=== PATIENT | male | born 1985 | race Caucasian/White ===

== ENCOUNTER 2017-02-14 14:45 | Emergency (ER) | payer OTHER, BC ==
[~2017-02-14] VITALS: Ht 188 cm; Wt 77.3 kg
[2017-02-14] MEDS ORDERED: CLAR1TAB2 PO (14:50)
[2017-02-14] MEDS ORDERED: LIDOCAINE W/EPINEPHRINE 1% 20ML VIAL SC ONE (16:15)
[2017-02-14] MEDS ORDERED: ADACEL/BOOSTRIX VACCINE (DIPHTH/PERTUSS/ACELL/TETANUS)0.5ML SYR (90715) IM ONE (16:15)
[2017-02-14] MEDS ORDERED: ONDANSETRON 4 MG ORAL DISINTEGRATING TAB (S0181) PO ONE (16:15)
[2017-02-14] MEDS ORDERED: MORPHINE 4 MG/ML 1ML SYRINGE IM ONE (16:15)
--- NOTE | 2017-02-14 16:38 | REP ---
Clinical: Laceration. Technique: AP and lateral views of the left forearm. Findings: Significant laceration noted to the soft tissues at the mid diaphyseal level. No obvious osseous involvement. No acute fracture or dislocation. No foreign body. Impression: Significant laceration of the soft tissues midshaft. Signed by Moreno Gautam MD 02/14/2017 04:28 P
[2017-02-14] MEDS ORDERED: LIDOCAINE 2% MDV 20 ML VIAL SC ONE (19:00)
[2017-02-14] MEDS ORDERED: ONDANSETRON 4MG/2ML VIAL (J2405) IV ONE (19:00)
[2017-02-14] MEDS ORDERED: MORPHINE 4 MG/ML 1ML SYRINGE IV ONE (19:00)
[2017-02-14] MEDS ORDERED: NORCOTAB PO (19:39)
[2017-02-14] MEDS ORDERED: KEFL500C17 PO (19:39)
[2017-02-14] MEDS ORDERED: NORCO 5/325MG TABLET (BULK FOR ED) PO ONE (19:45)
[2017-02-14 20:38] VITALS: BP 125/70
== END 2017-02-14 20:40 | disposition home or self-care (01) ==
LOC: M ED 14:45
DX: S51.812A Laceration without foreign body of left forearm, initial encounter (principal); S56.922A Laceration of unspecified muscles, fascia and tendons at forearm level, left arm, initial encounter; W31.9XXA Contact with unspecified machinery, initial encounter; Y92.59 Other trade areas as the place of occurrence of the external cause; Y93.89 Activity, other specified; Y99.8 Other external cause status
CPT/HCPCS: 12032; 73090; 90471; 90715; 96365; 96372; 96374; 96375; 99283; J0690; J2405

== ENCOUNTER → 2017-08-29 | Outpatient (REF) | payer BC | LOC: M SFHCLERA 10:11 | DX: J02.9 Acute pharyngitis, unspecified (principal) ==

== ENCOUNTER → 2020-07-14 | Outpatient (CLI) | payer BC ==
[~2020-07-14] MED LIST: CLAR1TAB2 PO; HYDR-3715 PO; KEFL500C17 PO
--- NOTE | 2020-07-14 07:30 | REP ---
INDICATION: HTN COMPARISON: None. TECHNIQUE: PA and lateral. FINDINGS: The mediastinum and cardiac silhouette are normal. The lung guzman are clear and without acute consolidation, effusion, or pneumothorax. The skeletal structures are intact and normal. IMPRESSION: No acute cardiopulmonary process. <Electronically signed by Moreno Gautam > 07/14/20 [id number]
[2020-07-14 07:40] LABS: HEMATOCRIT 44.7 % (42.0-52.0); HEMOGLOBIN 14.5 g/dl (13.5-17.5); MEAN CORPUSCULAR HEMOGLOBIN 29.8 pg (27.0-33.0); MEAN CORPUSCULAR HGB CONC 32.4 g/dl (32.0-36.5); MEAN CORPUSCULAR VOLUME 91.8 fl (80.0-96.0); PLATELET COUNT, AUTOMATED 156 10^3/uL (150-450); RED BLOOD COUNT 4.87 10^6/uL (4.30-6.10); WHITE BLOOD COUNT 4.8 10^3/uL (4.0-10.0)
[2020-07-14 08:22] LABS: ALBUMIN 4.2 GM/DL (3.2-5.2); ALT/SGPT 20 U/L (12-78); BILIRUBIN,TOTAL 0.7 MG/DL (0.2-1.0); BLOOD UREA NITROGEN 16 MG/DL (7-18); CARBON DIOXIDE LEVEL 31 MEQ/L (21-32); CHLORIDE LEVEL 104 MEQ/L (98-107); CHOLESTEROL LEVEL 160 MG/DL (<200); CHOLESTEROL RISK RATIO 2.711 (<5); CREATININE FOR GFR 1.07 MG/DL (0.70-1.30); GLOMERULAR FILTRATION RATE > 60.0 (>60); GLUCOSE, FASTING 81 MG/DL (70-100); HDL CHOLESTEROL 59 MG/DL (>40); LDL CHOLESTEROL 88 MG/DL (<100); NON-HDL-C 101 MG/DL; SODIUM LEVEL 142 MEQ/L (136-145); TOTAL PROTEIN 7.6 GM/DL (6.4-8.2); TRIGLYCERIDES LEVEL 66 MG/DL (<150)
--- NOTE | 2020-07-14 08:46 | ECGEPIP ---
[facility] Test Date: 2020-07-14 Pat Name: ETRESA ROMAN Department: Room: - Gender: Male [employer]: rf : 1985 Requested By: Brando Mcgee Order Number: [id number] Reading MD: Shade Smith Measurements Intervals [place] Rate: 73 P: 83 RI: 146 QRS: 67 QRSD: 92 T: 64 QT: 386 QTc: 425 Interpretive Statements Normal sinus rhythm with sinus arrhythmia Right atrial enlargement Baseline artifact Comparison tracing not on file Electronically Signed on 07-14-2020 8:46:49 EST by Shade Smith
[2020-07-14 09:36] LABS: HEMOGLOBIN A1c 4.7 %
[2020-07-14 09:57] LABS: TOTAL 25(OH) VITAMIN D 24.6 NG/ML (30.0-100.0)
== END ==
LOC: M LAB 06:06
PROVIDERS: ATTEND Family Medicine
DX: E03.9 Hypothyroidism, unspecified (principal); R53.83 Other fatigue; I10 Essential (primary) hypertension

== ENCOUNTER → 2022-07-07 | Outpatient (REF) | payer BC | LOC: M LAB REF 19:08 | PROVIDERS: ATTEND Physician Assistant Medical | DX: R07.0 Pain in throat (principal) ==

== ENCOUNTER → 2022-09-25 | Outpatient (CLI) | payer BC ==
[~2022-09-25] MED LIST changes: +E-Z-GAS II EFFERVESCENT PACKET (SODIUM BICARB./CITRIC ACID/SIMETHICONE) As Ordered ONE; +E-Z-HD 98% w/w 340GM SUSP BTL As Ordered ONE; +E-Z-PAQUE 96% w/w SUSP 176GM BTL As Ordered ONE
== END ==
LOC: M RAD 09:35
PROVIDERS: ATTEND Family Medicine
DX: R10.13 Epigastric pain (principal)

== ENCOUNTER → 2022-09-27 | Outpatient (CLI) | payer BC ==
[~2022-09-27] MED LIST changes: -E-Z-GAS II EFFERVESCENT PACKET (SODIUM BICARB./CITRIC ACID/SIMETHICONE) As Ordered ONE; -E-Z-HD 98% w/w 340GM SUSP BTL As Ordered ONE; -E-Z-PAQUE 96% w/w SUSP 176GM BTL As Ordered ONE
[2022-09-27 09:44] LABS: HEMATOCRIT 44.9 % (42.0-52.0); HEMOGLOBIN 14.7 g/dl (13.5-17.5); MEAN CORPUSCULAR HEMOGLOBIN 30.3 pg (27.0-33.0); MEAN CORPUSCULAR HGB CONC 32.7 g/dl (32.0-36.5); MEAN CORPUSCULAR VOLUME 92.6 fl (80.0-96.0); PLATELET COUNT, AUTOMATED 169 10^3/uL (150-450); RED BLOOD COUNT 4.85 10^6/uL (4.30-6.10); WHITE BLOOD COUNT 5.4 10^3/uL (4.0-10.0)
[2022-09-27 09:58] LABS: HEMOGLOBIN A1c 4.9 % (4.0-6.0)
[2022-09-27 10:19] LABS: ALKALINE PHOSPHATASE 46 U/L (46-116); ALT/SGPT 24 U/L (7.0-40); AST/SGOT 22 U/L (<34); BILIRUBIN,TOTAL 0.5 MG/DL (0.3-1.2); BLOOD UREA NITROGEN 17 MG/DL (9-23); CALCIUM LEVEL 9.1 MG/DL (8.5-10.1); CARBON DIOXIDE LEVEL 29 MMOL/L (20-31); CHLORIDE LEVEL 105 MMOL/L (98-107); CHOLESTEROL LEVEL 162 MG/DL (<200); CHOLESTEROL RISK RATIO 3.02 (<5); CREATININE FOR GFR 1.03 MG/DL (0.70-1.30); GLOMERULAR FILTRATION RATE > 60.0 (>60); GLUCOSE, FASTING 82 MG/DL (60-100); HDL CHOLESTEROL 53.5 MG/DL (>40); LDL CHOLESTEROL 89.1 MG/DL (<100); NON-HDL-C 108.5 MG/DL; POTASSIUM SERUM 4.3 MMOL/L (3.5-5.1); SODIUM LEVEL 142 MMOL/L (136-145); TOTAL PROTEIN 7.1 G/DL (5.7-8.2); TRIGLYCERIDES LEVEL 97 MG/DL (<150)
[2022-09-27 10:33] LABS: TOTAL 25(OH) VITAMIN D 90.2 NG/ML (20.0-100.0)
== END ==
LOC: M RAD 07:50
PROVIDERS: ATTEND Family Medicine
DX: I10 Essential (primary) hypertension (principal); R53.83 Other fatigue; E03.9 Hypothyroidism, unspecified

== ENCOUNTER → 2022-11-29 | Outpatient (CLI) | payer BC ==
[~2022-11-29] MED LIST changes: +AMPH1TAB2 PO
== END ==
LOC: M RAD 15:11
PROVIDERS: ATTEND Family Medicine
DX: R10.814 Left lower quadrant abdominal tenderness (principal)

== ENCOUNTER 2022-12-05 08:57 | Day surgery (SDC) | payer BC ==
[~2022-12-05] VITALS: Ht 182.9 cm; Wt 77.3 kg
[~2022-12-05 08:57] MED LIST changes: +NS 1,000 ML IV ONE
[2022-12-05] MEDS ORDERED: propofoL 200 MG/20 ML VIAL As Ordered ONE ×3 (10:39→10:47)
[2022-12-05 11:25] VITALS: BP 114/71; O2SAT 98
== END 2022-12-05 11:40 | disposition home or self-care (01) ==
LOC: M OPP 08:57
PROVIDERS: ATTEND Internal Medicine Gastroenterology
DX: D12.5 Benign neoplasm of sigmoid colon (principal); K64.8 Other hemorrhoids; K92.1 Melena; Z87.891 Personal history of nicotine dependence; Z79.899 Other long term (current) drug therapy

== ENCOUNTER → 2024-10-04 | Outpatient (CLI) | payer BC ==
[~2024-10-04] MED LIST changes: -NS 1,000 ML IV ONE
[2024-10-04 11:10] LABS: BASO % 0.7 % (0.0-1.0); EOS # 0.3 10^3/uL (0.0-0.5); EOS % 4.6 % (0.0-3.0); HEMATOCRIT 42.8 % (42.0-52.0); LYMPH # 1.6 10^3/uL (1.5-5.0); LYMPH % 28.4 % (24.0-44.0); MEAN CORPUSCULAR HEMOGLOBIN 30.4 pg (27.0-33.0); MEAN CORPUSCULAR HGB CONC 32.7 g/dl (32.0-36.5); MEAN CORPUSCULAR VOLUME 92.8 fl (80.0-96.0); MONO # 0.6 10^3/uL (0.0-0.8); MONO % 10.6 % (2.0-8.0); NEUTROPHILS % 55.5 % (36.0-66.0); PLATELET COUNT, AUTOMATED 125 10^3/uL (150-450); RED BLOOD COUNT 4.61 10^6/uL (4.30-6.10); WHITE BLOOD COUNT 5.5 10^3/uL (4.0-10.0)
[2024-10-04 11:38] LABS: ALKALINE PHOSPHATASE 46 U/L (40-129); ALT/SGPT 15 U/L (7.0-40); AST/SGOT 15 U/L (<34); BILIRUBIN,DIRECT 0.1 MG/DL (<0.4); BILIRUBIN,TOTAL 0.5 MG/DL (0.3-1.2); BLOOD UREA NITROGEN 16 MG/DL (9-23); CALCIUM LEVEL 8.9 MG/DL (8.5-10.1); CARBON DIOXIDE LEVEL 28 MMOL/L (20-31); CHLORIDE LEVEL 107 MMOL/L (98-107); CHOLESTEROL LEVEL 168 MG/DL (<200); CHOLESTEROL RISK RATIO 3.58 (<5); CREATININE FOR GFR 1.04 MG/DL (0.70-1.30); GLOMERULAR FILTRATION RATE > 90.0 (>60); GLUCOSE, FASTING 91 MG/DL (60-100); HDL CHOLESTEROL 46.9 MG/DL (>40); LDL CHOLESTEROL 103.9 MG/DL (<100); NON-HDL-C 121.1 MG/DL; POTASSIUM SERUM 4.6 MMOL/L (3.5-5.1); SODIUM LEVEL 143 MMOL/L (136-145); TOTAL PROTEIN 6.9 G/DL (5.7-8.2); TRIGLYCERIDES LEVEL 86 MG/DL (<150)
== END ==
LOC: M PLALAB 07:19
PROVIDERS: ATTEND Family Medicine
DX: R94.5 Abnormal results of liver function studies (principal)